=== PATIENT | male | born 1970 | race Caucasian/White ===

== ENCOUNTER → 2023-07-15 | Emergency (ER) | payer BC, OTHER ==
[~2023-07-15] MED LIST: KETOROLAC 30 MG/ML INJ ONE; ONDANSETRON 4 MG/2 ML VIAL ONE; TAMSULOSIN 0.4 MG SR CAP ONE
[2023-07-15 03:03] LABS: Absolute Lymphocytes (CBC) 1.2 K/uL (0.7-4.9); Hematocrit 48.3 % (39.6-49.0); Lymphocytes % 9.5 % (15.3-44.8); MCV 86.1 fL (80-100); MPV 7.6 fL (7.6-11.3); Platelets 230 thou/uL (152-406)
[2023-07-15 03:04] LABS: Albumin 3.6 g/dL (3.4-5.0); Bilirubin Total 0.3 mg/dL (0.2-1.0); Potassium 3.9 mEq/L (3.5-5.1); Protein, Total 7.1 g/dL (6.4-8.2)
[2023-07-15 03:13] LABS: Calcium Oxalate Crystals- Ur Moderate /HPF (None Seen); Specific Gravity > 1.030 (1.005-1.030); Urine Bacteria 20-50 /HPF (<20); Urine Bilirubin NEGATIVE (Negative); Urine Blood 3+ (Negative); Urine Clarity Turbid (Clear); Urine Color Light-Yellow (Yellow); Urine Glucose 4+ (Negative); Urine Mucus 1+ /HPF (None Seen); Urine Protein 1+ (Negative); Urine RBC >50 /HPF (None Seen); Urine Sperm Present (None Seen); Urine Urobilinogen Normal (Normal)
--- NOTE | 2023-07-15 04:10 | EDPHYS ---
Physician Documentation [facility] Name: Tl Bailey Jr Age: 53 yrs Sex: Male : 1970 Arrival Date: 07/15/2023 Time: 00:57 Bed 17 Private MD: ED Physician Nicholas Iverson HPI: 07/15 01:16 This 53 yrs old Male presents to ER via Ambulatory with complaints of Low Back Pain, kb Abdominal Pain, Possible Kidney Stone. 01:16 Pt is a 53 year old male who presents with left flank pain that radiates to left lower kb abd then down to groin. Reports urgency and frequency, but only able to urinate small amounts. Denies dysuria, hematuria or fever. States pain started at 2230 and has persisted. Reports vomiting due to pain. Historical: - Allergies: 01:14 No Known Allergies; jb4 - PMHx: 01:14 None; jb4 - PSHx: 01:14 None; jb4 - Immunization history:: Adult Immunizations not up to date. - Social history:: Smoking status: Patient denies any tobacco usage or history of. ROS: 01:16 Constitutional: Negative for fever, chills, and weight loss, kb 01:16 Abdomen/GI: Positive for abdominal pain, nausea and vomiting, 01:16 Back: Positive for flank pain, on the left, 01:16 : Positive for small amounts, difficulty urinating, 01:16 All other systems are negative, Exam: 01:16 Constitutional: This is a well developed, well nourished patient who is awake, alert, kb and in no acute distress. Head/Face: Normocephalic, atraumatic. ENT: Moist Mucous membranes Cardiovascular: Regular rate Respiratory: Respirations even and unlabored. No increased work of breathing. Talking in full sentences Abdomen/GI: Soft, non-tender. No distention Back: No spinal tenderness. No costovertebral tenderness. Full range of motion. Skin: Warm, dry with normal turgor. Normal color. MS/ Extremity: Pulses equal, no cyanosis. Neurovascular intact. Full, normal range of motion. Neuro: Awake and alert, GCS 15, oriented to person, place, time, and situation. Moves all extremities. Normal gait. Vital Signs: 01:11 Weight 112.04 kg; Height 5 ft. 9 in. ; jb4 01:27 BP 162 / 98; Pulse 75; Resp 16; Temp 97.6; Pulse Ox 96% on R/A; jb4 03:23 BP 155 / 87; Pulse 64; Pulse Ox 99% on R/A; Pain 0/10; tm6 04:36 BP 154 / 85; Pulse 62; Resp 19; Temp 98.2(TE); Pulse Ox 97% on R/A; Pain 0/10; tm6 01:11 Body Mass Index 36.48 (112.04 kg, 175.26 cm) jb4 03:23 Pain Scale: Adult tm6 04:36 Pain Scale: Adult tm6 MDM: 01:09 Patient medically screened. kb 01:16 Data reviewed: vital signs, nurses notes. kb 03:56 Differential diagnosis: arthritis, strain, fracture, sciatica, contusion, Herniated sp4 disc UTI. ED course: TECHNIQUE: CT of the abdomen and pelvis without contrast. All CT scans at this facility use dose modulation, iterative reconstruction, and/or weight based dosing when appropriate to reduce radiation dose to as low as reasonably achievable. COMPARISON: None. FINDINGS: Lower thorax: Minimal right basilar reticular opacities, likely atelectasis. Abdomen: Stomach:Within normal limits Liver:No focal lesions. No intrahepatic ductal distention. Gallbladder:Nondistended Pancreas:Within normal limits Spleen:Within normal limits Right kidney:No hydronephrosis. No renal or ureteral calculi. Left kidney: 3 mm distal ureteral stone. Stranding surrounding the kidney and ureter. Mild hydronephrosis. Adrenal glands:Within normal limits Vascular structures:Mild atherosclerosis of the abdominal aorta and major branches. Lymph nodes:No lymphadenopathy by size criteria Pelvis: Small bowel:No significant distention. Appendix:Within normal limits Colon:No distention or acute pericolonic edema. Colonic diverticulosis. Peritoneum: No free intraperitoneal fluid or air. Bones: No acute bone findings. Bladder: Under distended, limiting evaluation. Reproductive organs: No acute findings. Note that evaluation of the bowel and solid organs is somewhat limited due to lack of intravenous and oral contrast. IMPRESSION: 1. Left distal ureteral stone measuring 3 mm. Mild left-sided hydronephrosis. Stranding surrounding the left kidney and ureter. Correlate with urinalysis for superimposed infectious process. 2. Colonic diverticulosis without diverticulitis. . 04:07 ED course: Patient care assumed from physician carpenter's assistant. Patient is 33-year-old male sp4 presents with classic left-sided renal colic. CT revealed 3 mm ureteral stone in the distal left ureter. There is surrounding kidney ureteral stranding. Mild hydronephrosis on the left side. My evaluation patient states pain is gone. Will advise p.o. Flomax, high-dose ibuprofen as needed. Also patient has elevated blood sugar 246. Most likely sign of type 2 diabetes. Will advise diet exercise diabetic diet, follow-up with computational linguist at [facility]. . 07/15 01:13 Order name: CBC with Diff; Complete Time: 03:56 kb 07/15 01:13 Order name: CMP; Complete Time: 03:56 kb 07/15 01:13 Order name: Lipase; Complete Time: 03:56 kb 07/15 01:13 Order name: Urinalysis w/ reflexes; Complete Time: 03:56 kb 07/15 01:13 Order name: CT Stone Protocol kb 07/15 01:13 Order name: IV Saline Lock; Complete Time: 02:18 kb 07/15 01:13 Order name: Labs collected and sent; Complete Time: 02:18 kb Administered Medications: 02:18 Drug: NS 0.9% IV 1000 ml IV at 1 bolus Per protocol; 1000 mL bolus Route: IV; Rate: 1 tm6 bolus; Site: right antecubital; 02:49 Follow up: Response: No adverse reaction; IV Status: Completed infusion; IV Intake: tm6 1000ml 02:18 Drug: TORadol - Ketorolac IVP 15 mg IVP once Route: IVP; Site: right antecubital; tm6 02:18 Drug: Ondansetron IVP 4 mg IVP once; over 2 minutes Route: IVP; Site: right antecubital;tm6 04:05 Not Given (Physician Discretion): Rocephin - rocephin (ceftriaxone)1 grams IVPB once sp4 over 30 mins; (mix in 50 mL NS) 04:36 Drug: Flomax PO 0.4 mg PO once Route: PO; tm6 04:36 Not Given (Physician Discretion): [id number] mg PO once tm6 Disposition: 04:07 Co-signature as Attending Physician, Nicholas Iverson MD I agree with the assessment sp4 and plan of care. I reviewed the patient's care provided by Advanced Practice Provider \T\ agree w/ the diagnosis \T\ care plan. I personally saw the pt \T\ performed a substantive portion of the visit, incldng all aspects of the (History/Exam/Medical Decision Making). Disposition Summary: 07/15/23 04:09 Discharge Ordered Problem: new sp4 Symptoms: have improved sp4 Condition: Stable sp4 Diagnosis - Type 2 diabetes mellitus with hyperglycemia sp4 - Left ureteral calculus, left kidney stone, left hydronephrosis sp4 Followup: sp4 - With: Artis Che DO - When: 7 - 10 days - Reason: Recheck today's complaints Discharge Instructions: - Discharge Summary Sheet sp4 - Type 2 Diabetes Mellitus, Diagnosis, Adult sp4 - Kidney Stones, [id number] sp4 Forms: - Patient Portal Instructions sp4 Prescriptions: - Flomax 0.4 mg Oral capsule - take 1 capsule ORAL route daily; 30 capsule; Refills: 0, Product Selection sp4 Permitted - ketorolac 10 mg Oral tablet - take 1 tablet ORAL route every 8 hours for 1 day PRN pain; 20 tablet; Refills: sp4 0, Product Selection Permitted - ondansetron 8 mg Oral Tablet,disintegrating - take 1 tablet ORAL route every 8 hours for 48 hours as needed for nausea and sp4 vomiting; 30 tablet; Refills: 0, Product Selection Permitted Signatures: Dispatcher [employer] Henrietta Elizabeth, LUCINAC ZONIA-Yuan De León, RN RN jb4 Nicholas Iverson MD MD sp4 Law Kang RN RN tm6
--- NOTE | 2023-07-15 04:10 | ER ---
Nurse's Notes [facility] Name: Tl Bailey Jr Age: 53 yrs Sex: Male : 1970 Arrival Date: 07/15/2023 Time: 00:57 Bed 17 Private MD: Diagnosis: Type 2 diabetes mellitus with hyperglycemia;Left ureteral calculus, left kidney stone, left hydronephrosis Presentation: 07/15 01:11 Chief complaint: Patient states: I think I have a kidney stone, I am having left lower jb4 back pain that radiates to my left lower abdomen and to my groin. Coronavirus screen: At this time, the client does not indicate any symptoms associated with coronavirus-19. Ebola Screen: No symptoms or risks identified at this time. Initial Sepsis Screen: Does the patient meet any 2 criteria? No. Patient's initial sepsis screen is negative. Does the patient have a suspected source of infection? No. Patient's initial sepsis screen is negative. Risk Assessment: Do you want to hurt yourself or someone else? Patient reports no desire to harm self or others. Onset of symptoms was July 15, 2023. Transition of care: patient was not received from another setting of care. 01:11 Method Of Arrival: Ambulatory jb4 01:11 Acuity: REECE 3 jb4 Historical: - Allergies: 01:14 No Known Allergies; jb4 - PMHx: 01:14 None; jb4 - PSHx: 01:14 None; jb4 - Immunization history:: Adult Immunizations not up to date. - Social history:: Smoking status: Patient denies any tobacco usage or history of. Screenin:19 [facility] ED Fall Risk Assessment (Adult) History of falling in the last 3 months, tm6 including since admission No falls in past 3 months (0 pts) Confusion or Disorientation No (0 pts) Intoxicated or Sedated No (0 pts) Impaired Gait No (0 pts) Mobility Assist Device Used No (0 pt) Altered Elimination No (0 pt) Score/Fall Risk Level 0 - 2 = Low Risk Oriented to surroundings. Abuse screen: Denies threats or abuse. Denies injuries from another. Nutritional screening: No deficits noted. Tuberculosis screening: No symptoms or risk factors identified. Assessment: 02:19 General: Appears in no apparent distress. Behavior is calm, cooperative. Pain: tm6 Complains of pain in low back area and right low back Pain radiates to left lower quadrant Pain currently is 4 out of 10 on a pain scale. at worst was 8 out of 10 on a pain scale. Quality of pain is described as sharp, Pain began 1 day ago. Neuro: Level of Consciousness is awake, alert, obeys commands, Oriented to person, place, time, situation. Cardiovascular: Capillary refill < 3 seconds Patient's skin is warm and dry. Respiratory: Airway is patent Respiratory effort is even, unlabored, Respiratory pattern is regular, symmetrical. GI: Bowel sounds present X 4 quads. Abd is soft and non tender Reports lower abdominal pain. : Reports urinary frequency, since 10pm. EENT: No signs and/or symptoms were reported regarding the EENT system. Derm: No signs and/or symptoms reported regarding the dermatologic system. Musculoskeletal: No signs and/or symptoms reported regarding the musculoskeletal system. 02:50 Reassessment: Patient states feeling better. Patient states symptoms have improved. tm6 03:26 Reassessment: Patient appears in no apparent distress at this time. Patient and/or tm6 family updated on plan of care and expected duration. Pain level reassessed. Patient is alert, oriented x 3, equal unlabored respirations, skin warm/dry/pink. Patient states feeling better. Patient states symptoms have improved. 04:37 Reassessment: Patient and/or family updated on plan of care and expected duration. Pain tm6 level reassessed. Patient is alert, oriented x 3, equal unlabored respirations, skin warm/dry/pink. Patient denies pain at this time. Patient states feeling better. Patient states symptoms have improved. Vital Signs: 01:11 Weight 112.04 kg; Height 5 ft. 9 in. ; jb4 01:27 BP 162 / 98; Pulse 75; Resp 16; Temp 97.6; Pulse Ox 96% on R/A; jb4 03:23 BP 155 / 87; Pulse 64; Pulse Ox 99% on R/A; Pain 0/10; tm6 04:36 BP 154 / 85; Pulse 62; Resp 19; Temp 98.2(TE); Pulse Ox 97% on R/A; Pain 0/10; tm6 01:11 Body Mass Index 36.48 (112.04 kg, 175.26 cm) jb4 03:23 Pain Scale: Adult tm6 04:36 Pain Scale: Adult tm6 ED Course: 01:04 Patient arrived in ED. gm2 01:12 Nicholas Iverson MD is Attending Physician. sp4 01:14 Triage completed. jb4 01:14 Arm band placed on right wrist. jb4 01:35 Law Kang, RN is Primary Nurse. tm6 01:46 CT Stone Protocol In Process Unspecified. EDMS 02:19 Patient has correct armband on for positive identification. Bed in low position. Call tm6 light in reach. Side rails up X 1. Provided Education on: plan of care. Client placed on continuous cardiac and pulse oximetry monitoring. NIBP monitoring applied. Pulse ox on. NIBP on. Door closed. Noise minimized. 02:19 Inserted saline lock: 20 gauge in right antecubital area, using aseptic technique. tm6 04:08 Artis Che DO is Referral Physician. sp4 04:37 No provider procedures requiring assistance completed. IV discontinued, intact, tm6 bleeding controlled, No redness/swelling at site. Pressure dressing applied. Administered Medications: 02:18 Drug: NS 0.9% IV 1000 ml IV at 1 bolus Per protocol; 1000 mL bolus Route: IV; Rate: 1 tm6 bolus; Site: right antecubital; 02:49 Follow up: Response: No adverse reaction; IV Status: Completed infusion; IV Intake: tm6 1000ml 02:18 Drug: TORadol - Ketorolac IVP 15 mg IVP once Route: IVP; Site: right antecubital; tm6 02:18 Drug: Ondansetron IVP 4 mg IVP once; over 2 minutes Route: IVP; Site: right antecubital;tm6 04:05 Not Given (Physician Discretion): Rocephin - rocephin (ceftriaxone)1 grams IVPB once sp4 over 30 mins; (mix in 50 mL NS) 04:36 Drug: Flomax PO 0.4 mg PO once Route: PO; tm6 04:36 Not Given (Physician Discretion): [id number] mg PO once tm6 Medication: 02:19 VIS not applicable for this client. tm6 Intake: 02:49 IV: 1000ml; Total: 1000ml. tm6 Outcome: 04:09 Discharge ordered by . sp4 04:37 Discharged to home ambulatory, with family, tm6 04:37 Condition: stable 04:37 Discharge instructions given to patient, family, Instructed on discharge instructions, follow up and referral plans. medication usage, Demonstrated understanding of instructions, follow-up care, medications, Prescriptions given X 3, 04:38 Patient left the ED. tm6 Signatures: Dispatcher [employer] EDMS Henrietta Negro, ZONIA-C ZONIA-Yuan De León, RN RN jb4 Nicholas Iverson MD MD sp4 [place] 2 Law Kang RN RN tm6
[2023-07-15 04:54] VITALS: BP 154/85; TEMP 98.2; O2SAT 97
--- NOTE | 2023-07-15 11:41 | RAD REPORT ---
EXAM DESCRIPTION: CT - Stone Protocol - 07/15/2023 6:51 am CLINICAL HISTORY: 53 years Male; FLANK PAIN; Bed Name: 17 TECHNIQUE: CT of the abdomen and pelvis without contrast. All CT scans at this facility use dose modulation, iterative reconstruction, and/or weight based dosi ng when appropriate to reduce radiation dose to as low as reasonably achievable. COMPARISON: None. FINDINGS: Lower thorax: Minimal right basilar reticular opacities, likely atelectasis. Abdomen: Stomach: Within normal limits Liver: No focal lesions. No intrahepatic ductal distention. Gallbladder: Nondistended Pancreas: Within normal limits Spleen: Within normal limits Right kidney: No hydronephrosis. No renal or ureteral calculi. Left kidney: 3 mm distal ureteral stone. Stranding surrounding the kidney and ureter. Mild hydronephr osis. Adrenal glands: Within normal limits Vascular structures: Mild atherosclerosis of the abdominal aorta and major branches. Lymph nodes: No lymphadenopathy by size criteria Pelvis: Small bowel: No significant distention. Appendix: Within normal limits Colon: No distention or acute pericolonic edema. Colonic diverticulosis. Peritoneum: No free intraperitoneal fluid or air. Bones: No acute bone findings. Bladder: Under distended, limiting evaluation. Reproductive organs: No acute findings. Note that evaluation of the bowel and solid organs is somewhat limited due to lack of intravenous and oral contrast. IMPRESSION: 1. Left distal ureteral stone measuring 3 mm. Mild left-sided hydronephrosis. Strandin g surrounding the left kidney and ureter. Correlate with urinalysis for superimposed infectious proce ss. 2. Colonic diverticulosis without diverticulitis. Electronically signed by: Colin Shankar MD 07/15/2023 02:39 AM POT LINER Due to temporary technical issues with the PACS/Fluency reporting system, reports are being signed by the in house radiologist without review as a courtesy to ensure prompt reporting. The interpreting r adiologist is fully responsible for the content of the report.
== END ==
LOC: ER 00:57
DX: N13.2 Hydronephrosis with renal and ureteral calculous obstruction (principal); E11.65 Type 2 diabetes mellitus with hyperglycemia
CPT/HCPCS: 85025; 81001; 36415; 83690; 80053; 76377; 74176; J2405